=== PATIENT | female | born 1990 | race African-American/Black ===

== ENCOUNTER 2017-10-09 22:14 | Emergency (ER) | payer OTHER ==
[~2017-10-09] VITALS: Ht 154.9 cm; Wt 59.0 kg
[2017-10-09] MEDS ORDERED: IBUPROFEN 600600 M1 PO (23:49)
[2017-10-10 00:01] VITALS: BP 107/65
== END 2017-10-09 23:59 | disposition home or self-care (01) ==
LOC: ER 22:14
DX: S00.83XA Contusion of other part of head, initial encounter (principal); S10.0XXA Contusion of throat, initial encounter; Y04.8XXA Assault by other bodily force, initial encounter; Y93.89 Activity, other specified; Y92.89 Other specified places as the place of occurrence of the external cause; Y99.8 Other external cause status